=== PATIENT | female | born 1995 | race Native Hawaiian/Other Pacific Islander ===

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

== ENCOUNTER 2017-12-21 17:34 | Emergency (ER) | payer SELFPAY ==
[2017-12-21 17:49] VITALS: BP 153/96
[2017-12-21] MEDS ORDERED: Ketorolac 60 MG/2 ML SDV IM ONE (18:13)
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
== END 2017-12-21 18:26 | disposition home or self-care (01) ==
LOC: JP.ED 17:34
DX: S20.219A Contusion of unspecified front wall of thorax, initial encounter (principal); S30.1XXA Contusion of abdominal wall, initial encounter; S40.021A Contusion of right upper arm, initial encounter; V49.40XA Driver injured in collision with unspecified motor vehicles in traffic accident, initial encounter
CPT/HCPCS: 96372; 99285; J1885; 99283

== ENCOUNTER 2018-01-14 20:58 | Emergency (ER) | payer BC ==
[2018-01-14] MEDS ORDERED: Dextrose 5%-0.9% NaCl 1,000 ML IV SCH (21:15)
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
[2018-01-14 23:19] VITALS: BP 123/77
== END 2018-01-14 23:16 | disposition home or self-care (01) ==
LOC: JP.ED 20:58
DX: F32.9 Major depressive disorder, single episode, unspecified (principal); E11.9 Type 2 diabetes mellitus without complications; Z79.899 Other long term (current) drug therapy
CPT/HCPCS: 36415; 80053; 80305; 81001; 82962; 85025; 96360; 96361; 99285-25